=== PATIENT | male | born 1960 | race African-American/Black ===

== ENCOUNTER 2021-07-09 16:27 | Inpatient (IN) | payer OTHER, SELFPAY ==
[2021-07-09 17:06] LABS: #Monocytes 0.6 10x3/uL (0.0-1.1); #Neutrophils 7.9 10x3/uL (1.5-8.4); %Basophils 0.3 % (0.0-2.0); %Eosinophils 0.2 % (0.0-6.0); %Lymphocytes 8.8 % (18.0-47.0); %Monocytes 6.2 % (0.0-10.0); %Neutrophils 84.3 % (40.0-75.0); Hemoglobin 13.9 g/dL (13.5-17.5); Mean Corpuscular Hemoglobin 27.4 pg (27.0-33.0); Mean Platelet Volume 11.8 fl (7.4-10.4); Platelet Count 208 10x3/uL (150-450); RBC Distribution Width 14.6 % (11.5-14.5); Red Blood Cell (RBC) Count 5.07 10x6/uL (4.32-5.72); White Blood Cell (WBC) Count 9.4 10x3/uL (3.5-10.5)
[2021-07-09 17:17] LABS: Acetaminophen Less than 10.0 mcg/mL (10.0-30.0); Alcohol Less than 10 mg/dL (Less than 10); Salicylate Less than 8.0 mg/dL (15.0-30.0)
[2021-07-09 17:19] LABS: ALT (SGPT) 13 U/L (8-55); AST (SGOT) 13 U/L (5-34); Alkaline Phosphatase 43 U/L (40-110); Anion Gap 20 mmol/L (10-20); BUN (Urea Nitrogen) 20 mg/dL (8.4-25.7); Bilirubin, Total 0.4 mg/dL (0.2-1.2); Calc. Creatinine Clearance 0 mL/min (70-130); Calcium 8.8 mg/dL (7.8-10.44); Carbon Dioxide 20 mmol/L (23-31); Chloride 99 mmol/L (98-107); Potassium 4.5 mmol/L (3.5-5.1); Sodium 134 mmol/L (136-145)
[2021-07-09 17:20] LABS: Glucose 794 mg/dL (80-115)
[2021-07-09 17:31] LABS: Bilirubin Neg (Negative); Blood, Urine Negative (Negative); Clarity Clear (Clear); Glucose, Urine (Dipstick) >=1000 mg/dL (Negative); Ketone, Urine 5 mg/dL (Negative); Leukocyte Negative (Negative); Nitrite Negative (Negative); Protein, Urine (Dipstick) Negative (Neg-Trace); Urobilinogen Normal mg/dL (Less than 2)
[2021-07-09 17:39] LABS: Amphetamine Not Detected (NotDetected); Barbiturates Screen Not Detected (NotDetected); Benzodiazepine Screen Not Detected (NotDetected); Cocaine Metabolite Screen Not Detected (NotDetected); Methadone Not Detected (NotDetected); Methamphetamine Not Detected (NotDetected); Opiate Screen Not Detected (NotDetected); Oxycodone Screen Not Detected (NotDetected); Phencyclidine (PCP) Not Detected (NotDetected); THC/Cannabinoid Screen Not Detected (NotDetected); Tricyclic Screen Not Detected (NotDetected)
[2021-07-09] MEDS ORDERED: Acetaminophen 325 MG TAB PO PRN (19:12)
[2021-07-09] MEDS ORDERED: Calcium Carbonate 500 MG ChewTAB PO PRN (19:12)
[2021-07-09] MEDS ORDERED: Ondansetron PF 4 MG/2 ML Vial IVP PRN (19:12)
[2021-07-09] MEDS ORDERED: Senokot S 8.6-50 MG TAB PO PRN (19:12)
[2021-07-09] MEDS ORDERED: Dextrose 50% Abboject 50 ML SYRINGE SLOW IVP PRN (19:12)
[2021-07-09] MEDS ORDERED: Dextrose 5% in Water 1,000 ML IV PRN (19:12)
[2021-07-09] MEDS ORDERED: Guaifenesin DM 100-10/5 ML UDCUP PO PRN (19:12)
[2021-07-09] MEDS ORDERED: HYDROcodone/Acetaminophen 5/325 mg Tablet PO PRN (19:12)
[2021-07-09] MEDS ORDERED: Lorazepam 2 MG/ML VIAL SLOW IVP PRN (19:19)
[2021-07-09] MEDS ORDERED: hydrALAZINE 20 MG/ML VIAL SLOW IVP PRN (19:20)
[2021-07-09] MEDS ORDERED: Insulin Regular 300 UNITS/3 ML VIAL ONE (19:24)
[2021-07-09] MEDS ORDERED: Carvedilol 12.5 MG TAB PO SCH (20:45)
[2021-07-09 20:53] LABS: SARS-CoV-2 NAA Rapid Test Not Detected (NotDetected)
[2021-07-09] MEDS: HumaLOG 300 UNITS/3 ML VIAL SC PRN (21:45)
[2021-07-09] MEDS: Famotidine/PF 20 mg/2ml Vial SLOW IVP SCH (21:56)
[2021-07-09] MEDS: Lactated Ringer's 1,000 ML IV SCH (21:56)
[2021-07-09] MEDS: Lantus 1000 UNITS/10 ML VIAL SC SCH (21:57)
[2021-07-09 22:14] LABS: Actual Bicarbonate (HCO3v) 29 mEq/L (22-28); Base Excess 1.5 mEq/L (-2.0 to +3.0); Chloride (VBG) 100 mmol/L (98-106); Hemoglobin (Hb) 14.6 g/dL (13.1-17.2); Potassium (VBG) 4.04 mmol/L (3.70-5.30); Puncture Site Other Site; Sodium 140.9 mmol/L (133-146); pH (venous) 7.31 (7.32-7.43)
[2021-07-09 22:28] LABS: Lactic Acid 1.8 mmol/L (0.5-2.2)
[2021-07-09 22:34] LABS: Anion Gap 17 mmol/L (10-20); BUN (Urea Nitrogen) 16 mg/dL (8.4-25.7); CK (CPK) 252 U/L (30-200); Calc. Creatinine Clearance 88 mL/min (70-130); Calcium 9.7 mg/dL (7.8-10.44); Carbon Dioxide 28 mmol/L (23-31); Chloride 100 mmol/L (98-107); Glucose 369 mg/dL (80-115); Magnesium 2.3 mg/dL (1.6-2.6); Potassium 4.1 mmol/L (3.5-5.1); Sodium 141 mmol/L (136-145)
[2021-07-10 04:49] LABS: %Basophils 0.3 % (0.0-2.0); %Eosinophils 0.2 % (0.0-6.0); %Lymphocytes 15.9 % (18.0-47.0); %Monocytes 9.1 % (0.0-10.0); %Neutrophils 73.3 % (40.0-75.0); Mean Corpuscular HGB CONC 32.3 g/dL (32.0-36.0); Mean Corpuscular Hemoglobin 27.4 pg (27.0-33.0); Mean Corpuscular Volume 84.6 fl (81.2-95.1); Mean Platelet Volume 11.6 fl (7.4-10.4); Platelet Count 197 10x3/uL (150-450); RBC Distribution Width 14.6 % (11.5-14.5); Red Blood Cell (RBC) Count 4.75 10x6/uL (4.32-5.72); White Blood Cell (WBC) Count 10.9 10x3/uL (3.5-10.5)
[2021-07-10 05:00] LABS: ALT (SGPT) 18 U/L (8-55); AST (SGOT) 16 U/L (5-34); Albumin 3.9 g/dL (3.4-4.8); Alkaline Phosphatase 44 U/L (40-110); Anion Gap 12 mmol/L (10-20); BUN (Urea Nitrogen) 11 mg/dL (8.4-25.7); Bilirubin, Total 0.4 mg/dL (0.2-1.2); CK (CPK) 309 U/L (30-200); Calc. Creatinine Clearance 120 mL/min (70-130); Calcium 9.3 mg/dL (7.8-10.44); Carbon Dioxide 27 mmol/L (23-31); Chloride 105 mmol/L (98-107); Globulin 3.1 g/dL (2.4-3.5); Glucose 187 mg/dL (80-115); Potassium 3.4 mmol/L (3.5-5.1); Sodium 141 mmol/L (136-145)
[2021-07-10] MEDS ORDERED: Potassium Chloride 20 MEQ TAB PO SCH (05:15)
[2021-07-10] MEDS: Lactated Ringer's 1,000 ML IV SCH ×3 (05:51→21:09)
[2021-07-10] MEDS: HumaLOG 300 UNITS/3 ML VIAL SC PRN ×3 (08:44→16:41)
[2021-07-10] MEDS: Carvedilol 6.25 MG TAB PO SCH ×2 (08:44→16:41)
[2021-07-10] MEDS: Famotidine/PF 20 mg/2ml Vial SLOW IVP SCH ×2 (08:45→21:10)
[2021-07-10] MEDS: Enoxaparin Sodium 40 MG/0.4 ML SYRINGE SC SCH (08:45)
[2021-07-10 12:20] LABS: Hemoglobin A1c Greater than 14.0 % (4.0-6.0)
[2021-07-10] MEDS: Lantus 1000 UNITS/10 ML VIAL SC SCH (21:10)
[2021-07-11] MEDS: HumaLOG 300 UNITS/3 ML VIAL SC PRN ×4 (01:36→12:59)
[2021-07-11] MEDS: Lactated Ringer's 1,000 ML IV SCH (05:39)
[2021-07-11 05:55] VITALS: BMI 31.8
[2021-07-11] MEDS: Enoxaparin Sodium 40 MG/0.4 ML SYRINGE SC SCH (09:24)
[2021-07-11] MEDS: Carvedilol 6.25 MG TAB PO SCH (09:25)
[2021-07-11] MEDS: Famotidine/PF 20 mg/2ml Vial SLOW IVP SCH (09:27)
[2021-07-11 13:15] VITALS: BP 173/101; TEMP 97.4
[2021-07-11] MEDS ORDERED: Sterile Water 10 ML ONE (14:15)
== END 2021-07-11 15:06 | disposition home or self-care (01) | DRG 637 ==
LOC: CSHERS 16:27 → CSHICU 20:44 → CSHTELE 07-10 17:23
PROVIDERS: ADMIT Student in an Organized Health Care Education/Training Program; ATTEND Internal Medicine
PROC: 0HQ1XZZ Repair Face Skin, External Approach (ICD-10-PCS; principal; 2021-07-09)
DX: E11.00 Type 2 diabetes mellitus with hyperosmolarity without nonketotic hyperglycemic-hyperosmolar coma (NKHHC) (principal); G92.8 Other toxic encephalopathy; N17.9 Acute kidney failure, unspecified; Z20.822 Contact with and (suspected) exposure to COVID-19; W18.30XA Fall on same level, unspecified, initial encounter; S01.81XA Laceration without foreign body of other part of head, initial encounter; I10 Essential (primary) hypertension; E78.5 Hyperlipidemia, unspecified; T41.295A Adverse effect of other general anesthetics, initial encounter; I25.10 Atherosclerotic heart disease of native coronary artery without angina pectoris; Z95.5 Presence of coronary angioplasty implant and graft; Y92.59 Other trade areas as the place of occurrence of the external cause; Z79.82 Long term (current) use of aspirin; Z79.84 Long term (current) use of oral hypoglycemic drugs; Z79.4 Long term (current) use of insulin; Z79.899 Other long term (current) drug therapy
CPT/HCPCS: 36415; 36416; 70450; 71045; 80053; 80306; 80307; 81003; 82010; 82550; 82805; 83036; 83605; 83735; 84484; 85025; 93005; 94760; 96374; J0360; J1650; J1815; J7120; S0028; U0002